=== PATIENT | female | born 1980 | race Caucasian/White ===

== ENCOUNTER → 2016-12-15 11:09 | Outpatient (CLI) | payer MEDICAID ==
[2014-12-25 07:59] VITALS: BMI 41.4
[~2016-12-15 11:09] MED LIST: CELEXA10 MG PO; CELEXA40 MG PO; HYDROCODONE-APA1 TAB PO
== END | disposition home or self-care (01) ==
LOC: D.CT 11:09
DX: R06.6 Hiccough (principal); K21.9 Gastro-esophageal reflux disease without esophagitis

== ENCOUNTER → 2017-06-02 19:14 | Outpatient (CLI) | payer MEDICAID ==
[2014-12-25 07:59] VITALS: BMI 41.4
== END | disposition home or self-care (01) ==
LOC: D.SLEEP 19:14
DX: G47.33 Obstructive sleep apnea (adult) (pediatric) (principal)

== ENCOUNTER 2018-05-20 18:54 | Inpatient (IN) | payer MEDICAID ==
[~2018-05-20] VITALS: Ht 152.4 cm; Wt 101.8 kg
[2018-05-20 19:50] LABS: BASOPHILS 0.1 % (0-2); EOSINOPHILS 0.4 % (0-7); HEMATOCRIT 34.5 % (36.0-48.0); IMMATURE GRANULOCYTES 1.3 % (0-5); LYMPHOCYTES 9.4 % (15-50); MCH 28.4 pg (26.0-34.0); MCHC 31.9 g/dL (31.0-37.0); MCV 88.9 fL (80.0-100.0); MEAN PLATELET VOLUME 9.1 fL (7.4-10.4); MONOCYTES 5.9 % (2-11); NEUTROPHILS 82.9 % (40-80); PLATELET COUNT 272 10x3/uL (130-400); RBC 3.88 10x6/uL (4.00-5.40); RDW 14.4 % (11.5-14.5); WBC 16.4 10x3/uL (4.8-10.8)
[2018-05-20 20:12] LABS: ALBUMIN 2.6 g/dL (3.4-5.0); ALKALINE PHOSPHATASE 71 U/L (46-116); ALT (SGPT) 12 U/L (10-68); BILIRUBIN - TOTAL 0.22 mg/dL (0.2-1.3); CALC OSMOLALITY 271 mosm/kg (275-300); CARBON DIOXIDE 30.6 mmol/L (21.0-32.0); CHLORIDE - SERUM 102 mmol/L (98-107); CREATININE - SERUM 0.7 mg/dL (0.6-1.3); GLUCOSE 89 mg/dL (74-106); POTASSIUM - SERUM 3.5 mmol/L (3.5-5.1); PROTEIN - SERUM 6.5 g/dL (6.4-8.2); SODIUM 138 mmol/L (136-145); UREA NITROGEN 5 mg/dL (7-18); eGFR NON AFRICAN AMERICAN > 90 mL/min (90-120)
[2018-05-20 20:13] LABS: HCG SERUM NEGATIVE (NEGATIVE)
[2018-05-20 20:13] LABS: APPEARANCE HAZY (CLEAR); BILIRUBIN NEGATIVE (NEGATIVE); COLOR DK YELLOW (YELLOW); GLUCOSE NEGATIVE (NEGATIVE); KETONE NEGATIVE (NEGATIVE); NITRITE NEGATIVE (NEGATIVE); PROTEIN TRACE mg/dL (NEGATIVE); SPECIFIC GRAVITY 1.015 (1.005-1.020); UROBILINOGEN NORMAL (NORMAL)
[2018-05-20 20:15] LABS: BACTERIA MANY /hpf (NONE SEEN); WHITE CELLS - URINE 0-5 /hpf (0-5)
[2018-05-20 21:20] VITALS: BP 107/62
[2018-05-21] VITALS (7 sets, daily range): BP systolic 103–119; BP diastolic 48–65; Ht 152.4 cm; Wt 101.8 kg
[2018-05-21 10:11] LABS: BASOPHILS 0.1 % (0-2); EOSINOPHILS 0.3 % (0-7); HEMATOCRIT 32.4 % (36.0-48.0); HEMOGLOBIN 10.4 g/dL (12-16); IMMATURE GRANULOCYTES 0.8 % (0-5); LYMPHOCYTES 7.1 % (15-50); MCH 28.8 pg (26.0-34.0); MCHC 32.1 g/dL (31.0-37.0); MCV 89.8 fL (80.0-100.0); MEAN PLATELET VOLUME 9.4 fL (7.4-10.4); MONOCYTES 6.8 % (2-11); NEUTROPHILS 84.9 % (40-80); PLATELET COUNT 251 10x3/uL (130-400); RBC 3.61 10x6/uL (4.00-5.40); RDW 14.4 % (11.5-14.5); WBC 14.3 10x3/uL (4.8-10.8)
[2018-05-21 10:27] LABS: CALC OSMOLALITY 277 mosm/kg (275-300); CALCIUM 7.5 mg/dL (8.5-10.1); CARBON DIOXIDE 27.9 mmol/L (21.0-32.0); CHLORIDE - SERUM 106 mmol/L (98-107); CREATININE - SERUM 0.6 mg/dL (0.6-1.3); GLUCOSE 94 mg/dL (74-106); MAGNESIUM - SERUM 2.1 mg/dL (1.8-2.4); SODIUM 141 mmol/L (136-145); UREA NITROGEN 4 mg/dL (7-18); eGFR NON AFRICAN AMERICAN > 90 mL/min (90-120)
[2018-05-21 10:31] LABS: APTT 27.3 SECONDS (22.8-39.4); INR 1.21 (0.85-1.17); PROTIME 14.9 SECONDS (11.6-15.0)
[2018-05-21] MEDS ORDERED: REGLAN5 MG PO (14:04)
[2018-05-22 02:55] VITALS: BP 115/59
[2018-05-22 06:26] VITALS: BP 96/57
[2018-05-22 07:33] LABS: BASOPHILS 0.3 % (0-2); EOSINOPHILS 0.2 % (0-7); HEMATOCRIT 30.8 % (36.0-48.0); IMMATURE GRANULOCYTES 1.1 % (0-5); LYMPHOCYTES 7.2 % (15-50); MCH 28.7 pg (26.0-34.0); MCHC 32.5 g/dL (31.0-37.0); MCV 88.3 fL (80.0-100.0); MEAN PLATELET VOLUME 9.2 fL (7.4-10.4); MONOCYTES 8.7 % (2-11); NEUTROPHILS 82.5 % (40-80); PLATELET COUNT 267 10x3/uL (130-400); RBC 3.49 10x6/uL (4.00-5.40); RDW 14.4 % (11.5-14.5)
[2018-05-22 07:35] LABS: WBC 10.7 10x3/uL (4.8-10.8)
[2018-05-22 07:46] LABS: CALC OSMOLALITY 275 mosm/kg (275-300); CALCIUM 7.8 mg/dL (8.5-10.1); CARBON DIOXIDE 27.7 mmol/L (21.0-32.0); CHLORIDE - SERUM 104 mmol/L (98-107); CREATININE - SERUM 0.6 mg/dL (0.6-1.3); GLUCOSE 90 mg/dL (74-106); POTASSIUM - SERUM 3.9 mmol/L (3.5-5.1); SODIUM 140 mmol/L (136-145); UREA NITROGEN 3 mg/dL (7-18); eGFR NON AFRICAN AMERICAN > 90 mL/min (90-120)
[2018-05-22 09:25] VITALS: BP 105/59
[2018-05-22 12:35] VITALS: BP 116/74
[2018-05-22 15:20] VITALS: BP 119/58
[2018-05-22 20:00] VITALS: BP 120/58
[2018-05-23] VITALS: BP 103/52
[2018-05-23 04:00] VITALS: BP 121/63
[2018-05-23 07:45] VITALS: BP 106/61
[2018-05-23 11:26] VITALS: BP 104/65
[2018-05-23 15:06] VITALS: BP 126/66
[2018-05-23 20:08] VITALS: BP 128/65
[2018-05-24] VITALS (8 sets, daily range): BP systolic 101–168; BP diastolic 53–76
[2018-05-24 09:46] LABS: CALC OSMOLALITY 272 mosm/kg (275-300); CARBON DIOXIDE 26.1 mmol/L (21.0-32.0); CHLORIDE - SERUM 102 mmol/L (98-107); CREATININE - SERUM 0.6 mg/dL (0.6-1.3); GLUCOSE 130 mg/dL (74-106); MAGNESIUM - SERUM 2.1 mg/dL (1.8-2.4); POTASSIUM - SERUM 3.4 mmol/L (3.5-5.1); SODIUM 137 mmol/L (136-145); UREA NITROGEN 3 mg/dL (7-18); eGFR NON AFRICAN AMERICAN > 90 mL/min (90-120)
[2018-05-24 09:49] LABS: BASOPHILS 0.2 % (0-2); EOSINOPHILS 0.2 % (0-7); HEMATOCRIT 31.8 % (36.0-48.0); HEMOGLOBIN 10.3 g/dL (12-16); IMMATURE GRANULOCYTES 0.3 % (0-5); LYMPHOCYTES 8.1 % (15-50); MCH 28.5 pg (26.0-34.0); MCHC 32.4 g/dL (31.0-37.0); MCV 88.1 fL (80.0-100.0); MEAN PLATELET VOLUME 9.1 fL (7.4-10.4); NEUTROPHILS 85.2 % (40-80); PLATELET COUNT 315 10x3/uL (130-400); RBC 3.61 10x6/uL (4.00-5.40); RDW 14.2 % (11.5-14.5)
[2018-05-25 04:00] VITALS: BP 108/64
[2018-05-25 08:16] VITALS: BP 111/67
[2018-05-25 11:56] VITALS: BP 99/60
[2018-05-25 16:28] VITALS: BP 108/66
[2018-05-25 20:23] VITALS: BP 119/61
[2018-05-26 04:00] VITALS: BP 116/69
[2018-05-26 08:43] VITALS: BP 105/63
[2018-05-26] MEDS ORDERED: INVANZ 1 GM/NS 11 G1 IV (09:01)
[2018-05-26 12:08] VITALS: BP 112/68
== END 2018-05-26 13:48 | disposition home health service (06) | DRG 862 ==
LOC: D.ER 18:54 → D.EDHOLD 05-21 00:16 → D.MS 05-21 00:16
PROVIDERS: Family Medicine; Surgery
PROC: 02HV33Z Insertion of Infusion Device into Superior Vena Cava, Percutaneous Approach (ICD-10-PCS; principal; 2018-05-25)
PROC: B548ZZA Ultrasonography of Superior Vena Cava, Guidance (ICD-10-PCS; 2018-05-25)
DX: T81.4XXA Infection following a procedure, initial encounter (principal); K65.1 Peritoneal abscess; R19.7 Diarrhea, unspecified

== ENCOUNTER → 2018-06-03 10:01 | Outpatient (CLI) | payer MEDICAID ==
[2018-05-21 11:32] VITALS: BMI 43.8
[~2018-06-03 10:01] MED LIST changes: +INVANZ 1 GM/NS 11 G1 IV; +REGLAN5 MG PO
== END | disposition home or self-care (01) ==
LOC: D.CT 10:01
DX: K65.1 Peritoneal abscess (principal)

== ENCOUNTER → 2021-02-22 10:49 | Outpatient (CLI) | payer BC ==
[2018-05-21 11:32] VITALS: BMI 43.8
--- NOTE | 2021-02-25 08:00 | EC ---
PATIENT:MADDY HARRINGTON DATE OF SERVICE: 02/22/21 SEX: F MEDICAL RECORD: [id number] DATE OF : 84 LOCATION:[facility] [place] AGE OF PATIENT: 40 ADMISSION DATE: 02/22/21 REFERRING PHYSICIAN: INTERPRETING PHYSICIAN: JUDITH MILLS MD ECHOCARDIOGRAM REPORT ECHO CHARGES 4 ECHO COMPLETE Date: 02/22/21 CLINICAL DIAGNOSIS: SYNCOPE/HEART MURMUR ECHOCARDIOGRAPHIC MEASUREMENTS (adult normal given) AC root (d.<3.7cm) 3.1 cm LV Septum d (<1.2 cm> 1.4 cm Valve Excursion 1.8 cm LV Septum (systole) 1.5 cm Left Atria (s.<4.0cm> 3.5 cm LVPW d(<1.2cm) 1.5 cm RV (d.<2.3cm) 3.4 cm LVPW (sytole) 1.7 cm LV diastole(<5.6CM) 4.0 cm MV E-F(>70mm/sec) cm LV systole 2.7 cm LVOT Diameter 2.2 cm MV exc.(>10mm) 1.7 cm Est.ejection fraction (50-75%) % DOPPLER: LVIT cm/sec A 54.0 cm/sec E 62.0 cm/sec LA cm/sec RVSP 22 mmHg LVOT 93 cm/sec AOP1/2T m/s Asc. Ao 135 cm/sec RVOT 77 cm/sec RA cm/sec PA 113 cm/sec AV Gradient Peak 7.33 mmHg AV Mean 4.04 mmHg AV Area 2.7 cm MV Gradient Peak 1.70 mmHg MV Mean 0.77 mmHg MV Area cm COMMENTS: Belt Cutter: 2 ANGELINA HUTCHINS Sales And Service Representative: 3 Dr. Mckeon TAPE# PACS Pericardial Effusion N DATE OF SERVICE: Adequate 2D, color-flow imaging, spectral Doppler, and M-Mode FINDINGS: LVH is present. LV internal dimensions are normal. Wall motion is normal. EF is greater than or equal to 55%. Aortic valve is tricuspid with good valve excursion. No significant AI. Left atrium is normal at 3.5 cm. Mitral valve appears normal. Physiologic MR. Right side is grossly normal. Physiologic TR. ECHOCARDIOGRAM REPORT [id number] MADDY HARRINGTON TRANSINT:[id number] Voice Confirmation ID: [id number] DOCUMENT ID: [id number] JUDITH MILLS MD at 0800 CC: [id number] DICTATION DATE: 02/23/21 1001 PULLER OUT: 02/23/21 1331 DEP CLI 02/22/21 [facility] [address] [id number]
== END | disposition home or self-care (01) ==
LOC: D.HCCECHO 10:49
PROVIDERS: ATTEND Internal Medicine Interventional Cardiology
DX: R55 Syncope and collapse (principal)